=== PATIENT | male | born 1950 | race Caucasian/White ===

== ENCOUNTER 2018-07-26 18:50 | Inpatient (IN) | payer MEDICARE, BC ==
[~2018-07-26] VITALS: Ht 172.7 cm; Wt 143.0 kg
[2018-07-26] MEDS ORDERED: PANTOPRAZOLE IV 80 MG in SOD CHLORIDE 0.9% 100 ML IVPB STA (20:40)
[2018-07-26] MEDS ORDERED: PANTOPRAZOLE IV 80 MG in SOD CHLORIDE 0.9% 100 ML IV STA (20:40)
[2018-07-26] MEDS ORDERED: ACETAMINOPHEN 325 MG TAB PO PRN (22:30)
[2018-07-26] MEDS ORDERED: ONDANSETRON 4 MG INJ IV PRN (22:30)
--- NOTE | 2018-07-26 22:30 | ERD ---
ER Documentation Chief Complaint Chief Complaint SENT BY PMD FOR LOW H&H HPI This is a 68-year-old male sent here by his primary care physician for hemoglobin of 6.5. Patient denies any melena or vomiting blood. He says he does not feel very weak but has some generalized fatigue. No shortness of breath on exertion no history of ulcer or gastritis. He was sent by his physician to be admitted to the hospital for GI bleed work-up and blood transfusion. ROS All systems reviewed and are negative except as per history of present illness. Allergies Allergies: Coded Allergies: No Known Allergy (Verified , 11/07/12) PMhx/Soc History of Surgery: Yes (BLADDER , RIGTH HIP REPLACEMET) Anesthesia Reaction: No Hx Neurological Disorder: No Hx Respiratory Disorders: No Hx Cardiac Disorders: No Hx Psychiatric Problems: No Hx Miscellaneous Medical Probl: Yes (HTN) Hx Alcohol Use: Yes Hx Substance Use: No Hx Tobacco Use: No Smoking Status: Never smoker FmHx Family History: No coronary disease Physical Exam Vitals Vital Signs Date Temp Pulse Resp B/P (MAP) Pulse Ox O2 O2 Flow FiO2 Time Delivery Rate 07/26/18 97.0 89 18 172/77 97 18:53 (108) Physical Exam Const: Well-developed, well-nourished Head: Atraumatic, normocephalic Eyes: Normal Conjunctiva, PERRLA, EOMI, normal sclera, no nystagmus ENT: Normal External Ears, Nose and Mouth, moist mucus membranes. Neck: Full range of motion. No meningismus, no lymphadenopathy. Resp: Clear to auscultation bilaterally, no wheezing, rhonchi, rales Cardio: Regular rate and rhythm, no murmurs, S1 S2 present Abd: Soft, non tender x 4, non distended. Normal bowel sounds, no guarding or rebound, no pulsitile abdominal masses or bruits Skin: No petechiae or rashes, no ecchymosis , no maculopapular rash Back: No midline or flank tenderness Ext: No cyanosis, or edema, FROM x 4, normal inspection, neurov ascularly intact x 4 Neur: Awake and alert, STR 5/5 x 4, sensation intact x 4, no focal findings, cerebellum intact Psych: Normal Mood and Affect Result Diagram: 07/26/18203607/26/182036 Results 24 hrs Laboratory Tests Test 07/26/18 20:37 White Blood Count 13.8 10^3/ul Red Blood Count 3.72 10^6/ul Hemoglobin 6.3 g/dl Hematocrit 24.7 % Mean Corpuscular Volume 66.4 fl Mean Corpuscular Hemoglobin 16.9 pg Mean Corpuscular Hemoglobin Concent 25.5 g/dl Red Cell Distribution Width 21.0 % Platelet Count 274 10^3/UL Mean Platelet Volume 10.0 fl Immature Granulocytes % 0.400 % Neutrophils % % Segmented Neutrophils % (Manual) 67 % Lymphocytes % % Lymphocytes % (Manual) 24 % Monocytes % % Monocytes % (Manual) 5 % Eosinophils % % Eosinophils % (Manual) 2 % Basophils % % Basophils % (Manual) 2 % Nucleated Red Blood Cells % 0.2 /100WBC Immature Granulocytes # 0.050 10^3/ul Neutrophils # 10^3/ul Lymphocytes (Manual) 3.3 10^3/ul Lymphocytes # 10^3/ul Monocytes # 10^3/ul Monocytes # (Manual) 0.6 10^3/ul Eosinophils # 10^3/ul Basophils # 10^3/ul Basophils # (Manual) 0.2 10^3/ul Nucleated Red Blood Cells # 10^3/ul Pathologist Review (Hematology) YES Polychromasia 1+ Hypochromasia 3+ Poikilocytosis 1+ Anisocytosis 3+ Microcytosis 3+ Prothrombin Time 13.5 Sec Prothrombin Time Ratio 1.1 INR International Normalized Ratio 1.02 Activated Partial Thromboplast Time 25.2 Sec Sodium Level 141 mmol/L Potassium Level 4.6 mmol/L Chloride Level 106 mmol/L Carbon Dioxide Level 26 mmol/L Anion Gap 9 Blood Urea Nitrogen 19 mg/dl Creatinine 1.14 mg/dl Est Glomerular Filtrat Rate mL/min > 60 mL/min Glucose Level 126 mg/dl Calcium Level 9.2 mg/dl Total Bilirubin 0.4 mg/dl Direct Bilirubin 0.00 mg/dl Indirect Bilirubin 0.4 mg/dl Aspartate Amino Transf (AST/SGOT) 38 IU/L Alanine Aminotransferase (ALT/SGPT) 34 IU/L Alkaline Phosphatase 75 IU/L Total Protein 7.9 g/dl Albumin 4.2 g/dl Globulin 3.70 g/dl Albumin/Globulin Ratio 1.13 Current Medications Medications Dose Sig/Ric Start Time Status Last (Trade) Ordered Route PRN Stop Time Admin Dose Reason Admin Pantoprazole 100 ml @ ONCE STAT 07/26/18 DC 07/26/18 80 mg/Sodium 400 mls/hr IVPB 20:40 21:19 Chloride 07/26/18 20:54 Pantoprazole 100 ml @ ONCE STAT 07/26/18 07/26/18 80 mg/Sodium 10 mls/hr IV 20:40 21:19 Chloride 07/27/18 06:39 Procedures/MDM Patient's hemoglobin is 6.3. I spoke with the primary care physician will be admitted and get strict blood transfusion started here 2 units packed red blood cells. I started him on Protonix IV bolus and drip Critical Care Time: 30 minutes Treatments/Evaluations: Close monitoring and treatment of unstable vital signs, cardiorespiratory, and neurologic status, while maintaining tight balance of fluid, respiratory, and cardiac interventions. This time includes discussing the case with the patient and the patient's family. This time does not include all procedures stated elsewhere in this record. This time also includes reviewing old records, labs and radiological studies. This time includes examining and re- examining the patient. Additionally, this time also includes arranging care with admitting and consulting physicians. Departure Diagnosis: Primary Impression: Anemia Anemia type: unspecified type Qualified Codes: D64.9 - Anemia, unspecified Condition: Stable IVELISSE LEWIS DO July 26, 2018 22:30
[2018-07-27] VITALS (12 sets, daily range): BP systolic 122–180; BP diastolic 57–81; PULSE 74–123; RESP 16–21
[2018-07-27] MEDS ORDERED: TAMS-14 PO (00:10)
[2018-07-27] MEDS ORDERED: DULA0.75 SQ (00:10)
[2018-07-27] MEDS ORDERED: SITA1TAB PO (00:10)
[2018-07-27] MEDS ORDERED: ALLO300T2 PO (00:10)
[2018-07-27] MEDS ORDERED: IBUP-1542 PO (00:10)
[2018-07-27] MEDS ORDERED: IRBE1TAB33 PO (00:10)
--- NOTE | 2018-07-27 00:46 | PN ---
Date/Time of Note Date/Time of Note DATE: 07/27/18 TIME: 00:36 Assessment/Plan VTE Prophylaxis SCD applied (from Nsg): Yes SCD contraindicated: other (on.) Pharmacological prophylaxis: other (no.) Pharm contraindication: bleeding Lines/Catheters IV Catheter Type (from Nrsg): [place] [employer] line still needed: No Reason Cath still needed: urinary retention Assessment/Plan Assessment/Plan 1.Anemia-with possible recent loss 2.Hx of GI bleeding with multiple units of prbc tx 3.HTN with chf 4.Morbid obesity with snoring 5.Dyslipidemia 6.Nephrolithiasis with the Hx of lithotripsy and bladder stone removal 7.S/P abdominal hernia repair 8.S/P left hip replacement 9.Hemorrhoidal disease 10.Non-comlience to medications and diet 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 12.Hx of moderate etoh use 13.LBP 14.Hearing impairment 15.Hx of multiple body part traumas 16.COPD Result Diagram: 07/26/18203607/26/182036 Results 24hrs Laboratory Tests Test 07/26/18 20:37 White Blood Count 13.8 H Red Blood Count 3.72 L Hemoglobin 6.3 *L Hematocrit 24.7 L Mean Corpuscular Volume 66.4 L Mean Corpuscular Hemoglobin 16.9 L Mean Corpuscular Hemoglobin Concent 25.5 L Red Cell Distribution Width 21.0 H Platelet Count 274 Mean Platelet Volume 10.0 Immature Granulocytes % 0.400 Neutrophils % Segmented Neutrophils % (Manual) 67 Lymphocytes % Lymphocytes % (Manual) 24 Monocytes % Monocytes % (Manual) 5 Eosinophils % Eosinophils % (Manual) 2 Basophils % Basophils % (Manual) 2 Nucleated Red Blood Cells % 0.2 H Immature Granulocytes # 0.050 H Neutrophils # Lymphocytes (Manual) 3.3 H Lymphocytes # Monocytes # Monocytes # (Manual) 0.6 Eosinophils # Basophils # Basophils # (Manual) 0.2 H Nucleated Red Blood Cells # Pathologist Review (Hematology) YES Polychromasia 1+ Hypochromasia 3+ Poikilocytosis 1+ Anisocytosis 3+ Microcytosis 3+ Prothrombin Time 13.5 Prothrombin Time Ratio 1.1 INR International Normalized Ratio 1.02 Activated Partial Thromboplast Time 25.2 Sodium Level 141 Potassium Level 4.6 Chloride Level 106 Carbon Dioxide Level 26 Anion Gap 9 Blood Urea Nitrogen 19 Creatinine 1.14 Est Glomerular Filtrat Rate mL/min > 60 Glucose Level 126 Calcium Level 9.2 Total Bilirubin 0.4 Direct Bilirubin 0.00 Indirect Bilirubin 0.4 Aspartate Amino Transf (AST/SGOT) 38 Alanine Aminotransferase (ALT/SGPT) 34 Alkaline Phosphatase 75 Total Protein 7.9 Albumin 4.2 Globulin 3.70 H Albumin/Globulin Ratio 1.13 Subjective 24 Hr Interval Summary Free Text/Dictation He was sent here by me, in am, for hemoglobin of 6.5. bleeding through hemorrhoid, rectum and via urination.He had previose hx of blood tx. Patient denies any melena or vomiting blood. He says he does not feel very weak but has some generalized fatigue. No shortness of breath on exertion no history of ulcer or gastritis. Constitutional: diaphoresis; No no complaints, No improved, No chills, No disoriented, No febrile, No poor po, No requiring IVF, No requiring O2, No other Eyes: No no complaints, No pain, No discharge, No redness, No visual change, No other ENT: congestion; No no complaints, No bleeding, No pain, No discharge, No dysphagia, No sore throat, No other Respiratory: cough, shortness of breath; No no complaints, No pain, No pleuritic pain, No sputum, No wheezing, No other Cardiovascular: chest pain, edema; No no complaints, No lightheadedness, No orthopenea, No palpitations, No paroxysmal nocturnal dyspnea, No other Gastrointestinal: constipation, decreased appetite, flatus, nausea, passing stool; No no complaints, No pain, No blood, No diarrhea, No vomiting, No other Genitourinary: dysuria, flank pain; No no complaints, No bleeding, No discharge, No hematuria, No other Musculoskeletal: back pain, bone/joint pain, neck pain; No no complaints, No restricted range of motion, No swelling, No other Skin: No no complaints, No bruising, No erythema, No laceration, No pruritis, No rash, No skin lesions, No other Neurologic: dizziness, headache; No no complaints, No confusion, No focal-weakness, No syncope, No seizure, No other Endocrine: No no complaints, No polyuria, No polydypsia, No dry skin, No temp intolerance, No other Lymphatic: No no complaints, No adenopathy, No tender nodes, No lymphadema, No other Psychological: anxiety; No no complaints, No nl mood/affect, No confusion, No depression, No suicidal, No other Immunologic: No no complaints, No immunodeficiency, No pruritis, No rhinitis, No urticaria, No other Exam/Review of Systems Exam Vitals Vital Signs Date Temp Pulse Resp B/P (MAP) Pulse Ox O2 O2 Flow FiO2 Time Delivery Rate 07/26/18 98.1 91 22 147/74 96 Room Air 23:30 (98) Constitutional: alert, oriented, well developed, distress, obese, other (On and off expressed the thoughts that he is okay that he can go home. Explained the patient the level of H&H and the course can be only bleeding through the GI tract mainly although he had a history of urinary tract problem including bleeding and history of nephrolithiasis and passing stones he agreed to stage at least a minimal work-up will be done.); No non-verbal, No frail Psych: anxiety, depression; No no complaints, No nl mood/affect, No confusion, No suicidal, No other Head: normocephalic, atraumatic; No lacerations, No hematomas, No other Eyes: EOMI, nl lids, nl sclera, PERRL, icteric (Pale conjunctiva.); No nl conjunctiva, No fundi, disc, No other ENMT: nl external ears & nose, nl nasal mucosa & septum; No nl lips & teeth, No mucosa pink and moist, No intubated, No tympanic membranes, No other Neck: jvd, bruits, thyromegaly, nuchal rigidity; No supple, No non-tender, No masses, No other Respiratory: congested cough, crackles/rales, diminished breath sounds, respirations, wheezing; No clear to auscultation, No normal air movement, No intercostal retraction, No labored breathing, No tactile fremitus, No other Cardiovascular: regular rate and rhythm, bruits, murmurs/extra sounds, systolic murmur; No nl pulses, No diastolic murmur, No edema, No gallop, No irregular rhythm, No jugular venous distention (JVD), No rub, No S3, No S4, No other Gastrointestinal: soft, distended, rebound or guarding; No nl liver, spleen, No non-tender, No ascites, No bowel sounds, No firm, No hepatomegaly, No mass, No splenomegaly, No surgical scars, No tender, No other Genitourinary - Male: nl penis, nl scrotum; No CVA tenderness, No discharge, No other Musculoskeletal: joint tenderness, muscle tone, muscle weakness; No nl extremities to inspection, No nl gait and stance, No range of motion, No spine non-tender, No swelling, No other Extremities: edema; No normal pulses, No calf tenderness, No cyanosis, No clubbing, No pitting pedal edema, No palpable cord, No tenderness, No other Neurological: MANAGER CHEMICAL II-XII intact, numbness; No nl mental status, No nl speech, No nl strength, No confused, No DTR's symmetric, No focal weakness, No lethargic, No reflexes, No unresponsive, No other Skin: nl turgor; No rash or lesions, No diaphoresis, No ecchymosis, No laceration, No puncture, No other Lymph: No nl lymph nodes, No enlarged, No nontender, No other Results Results 24hrs Laboratory Tests Test 07/26/18 20:37 White Blood Count 13.8 H Red Blood Count 3.72 L Hemoglobin 6.3 *L Hematocrit 24.7 L Mean Corpuscular Volume 66.4 L Mean Corpuscular Hemoglobin 16.9 L Mean Corpuscular Hemoglobin Concent 25.5 L Red Cell Distribution Width 21.0 H Platelet Count 274 Mean Platelet Volume 10.0 Immature Granulocytes % 0.400 Neutrophils % Segmented Neutrophils % (Manual) 67 Lymphocytes % Lymphocytes % (Manual) 24 Monocytes % Monocytes % (Manual) 5 Eosinophils % Eosinophils % (Manual) 2 Basophils % Basophils % (Manual) 2 Nucleated Red Blood Cells % 0.2 H Immature Granulocytes # 0.050 H Neutrophils # Lymphocytes (Manual) 3.3 H Lymphocytes # Monocytes # Monocytes # (Manual) 0.6 Eosinophils # Basophils # Basophils # (Manual) 0.2 H Nucleated Red Blood Cells # Pathologist Review (Hematology) YES Polychromasia 1+ Hypochromasia 3+ Poikilocytosis 1+ Anisocytosis 3+ Microcytosis 3+ Prothrombin Time 13.5 Prothrombin Time Ratio 1.1 INR International Normalized Ratio 1.02 Activated Partial Thromboplast Time 25.2 Sodium Level 141 Potassium Level 4.6 Chloride Level 106 Carbon Dioxide Level 26 Anion Gap 9 Blood Urea Nitrogen 19 Creatinine 1.14 Est Glomerular Filtrat Rate mL/min > 60 Glucose Level 126 Calcium Level 9.2 Total Bilirubin 0.4 Direct Bilirubin 0.00 Indirect Bilirubin 0.4 Aspartate Amino Transf (AST/SGOT) 38 Alanine Aminotransferase (ALT/SGPT) 34 Alkaline Phosphatase 75 Total Protein 7.9 Albumin 4.2 Globulin 3.70 H Albumin/Globulin Ratio 1.13 Medications Medication Current Medications Pantoprazole 80 mg/Sodium Chloride 100 ml @ 10 mls/hr ONCE STAT IV Last administered on 07/26/18at 21:19; Admin Dose 10 MLS/HR; Start 07/26/18 at 20:40; Stop 07/27/18 at 06:39 Ondansetron HCl (Zofran Inj) 4 mg ER BRIDGE PRN IV NAUSEA/VOMITING; Start 07/26/18 at 22:30; Stop 07/27/18 at 22:29 Acetaminophen (Tylenol Tab) 650 mg ER BRIDGE PRN PO .MILD PAIN 1-3 OR TEMP; Start 07/26/18 at 22:30; Stop 07/27/18 at 22:29 Allopurinol (Zyloprim) 300 mg DAILY PO ; Start 07/27/18 at 09:00; Status UNV Tamsulosin HCl (Flomax) 0.4 mg QHS PO ; Start 07/27/18 at 21:00; Status UNV Miscellaneous Information 1 tab DAILY PO ; Start 07/27/18 at 09:00; Status UNV Miscellaneous Information 1 tab QAM PO ; Start 07/27/18 at 09:00; Status UNV Pantoprazole (Protonix Tab) 40 mg DAILY@06 PO ; Start 07/27/18 at 06:00; Status UNV Albuterol/ Ipratropium (Duoneb) 3 ml Q6HWA RESP THERAPY HHN ; Start 07/27/18 at 08:00; Status UNV JIGNA LUNA MD July 27, 2018 00:46
[2018-07-27] MEDS ORDERED: CLONIDINE 0.1 MG/24 HR PATCH TRANSDERM SCH (01:00)
[2018-07-27] MEDS ORDERED: hydrALAzine 20 MG INJ IV PRN (01:30)
[2018-07-27] MEDS: PANTOPRAZOLE (EC) 40 MG TAB PO SCH (06:23)
[2018-07-27] MEDS: ALBUTEROL/IPRATROPIUM (NEB) 3 ML AMP HHN SCH ×3 (08:06→19:34)
[2018-07-27] MEDS: ALLOPURINOL 300 MG TAB PO SCH (08:10)
[2018-07-27] MEDS: LOSARTAN 50 MG TAB PO SCH (08:10)
[2018-07-27] MEDS ORDERED: metFORMIN 500 MG TAB PO SCH (08:30)
[2018-07-27] MEDS ORDERED: NON-FORMULARY/PATIENT OWN MED (Sitagliptin Phos/Metformin HCl (Janumet 50-500 mg Tablet) 1 PO SCH (09:00)
[2018-07-27] MEDS: LINAGLIPTIN 5 MG TABLET PO SCH (10:21)
[2018-07-27] MEDS: metFORMIN 500 MG TAB PO SCH (10:21)
[2018-07-27] MEDS ORDERED: TAMSULOSIN (SR) 0.4 MG CAP PO SCH (21:00)
--- NOTE | 2018-07-27 23:22 | PDOCDIS ---
Discharge Instructions DIAGNOSIS Discharge Diagnosis 1.Anemia-with possible recent loss; s/p 4 units of prbc tx. 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 SCHOOL/WORK RELEASE May return to School/Work with: No Restrictions JIGNA LUNA MD July 27, 2018 23:22
[2018-07-28] VITALS: BP 145/67; PULSE 83; RESP 18
[2018-07-28 00:09] VITALS: PULSE 81
[2018-07-28 03:55] VITALS: BP 148/70; PULSE 84; RESP 18
[2018-07-28 04:00] VITALS: PULSE 97
[2018-07-28] MEDS: PANTOPRAZOLE (EC) 40 MG TAB PO SCH (06:10)
[2018-07-28 07:15] VITALS: BP 136/74; PULSE 85; RESP 20
[2018-07-28] MEDS: metFORMIN 500 MG TAB PO SCH (08:00)
[2018-07-28 08:11] VITALS: PULSE 76
--- NOTE | 2018-07-28 08:43 | PDOCDIS ---
Discharge Instructions DIAGNOSIS Discharge Diagnosis 1.Anemia-with possible recent loss; s/p 4 units of prbc tx. 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 In [address] Self. SCHOOL/WORK RELEASE May return to School/Work with: No Restrictions JIGNA LUNA MD July 28, 2018 08:42
[2018-07-28] MEDS: ALLOPURINOL 300 MG TAB PO SCH (09:00)
[2018-07-28] MEDS: LINAGLIPTIN 5 MG TABLET PO SCH (09:00)
[2018-07-28] MEDS: LOSARTAN 50 MG TAB PO SCH (09:00)
[2018-07-28] MEDS ORDERED: HYDROCHLOROTHIAZIDE 12.5 MG CAP PO SCH (09:00)
--- NOTE | 2018-07-28 10:09 | CONS ---
DATE OF ADMISSION: 07/26/2018 DATE OF CONSULTATION: 07/27/2018 GENERAL: I saw the patient yesterday. I had encounter with him yesterday. HISTORY OF PRESENT ILLNESS: The patient is a 68-year-old male who was sent to the Emergency Room by primary care physician for low hemoglobin. His hemoglobin was 6.5. The patient denied any abdominal pain, no nausea, no vomiting. No gross GI bleeding, no melena, no hematochezia. He was just feelin g generalized weakness. 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 No history of w eight loss. REVIEW OF SYSTEMS: Otherwise negative. ALLERGIES: NONE. PAST MEDICAL HISTORY: History of bladder surgery and a right hip replacement, history of hypertensio n. PAST SURGICAL HISTORY: He had surgery on his abdomen. Laparotomy was done. FAMILY HISTORY: Mother had colon cancer. PHYSICAL EXAMINATION VITAL SIGNS: Stable. HEENT: Unremarkable. NECK: Supple, no thyromegaly, no lymphadenopathy. CARDIOVASCULAR: No murmur, gallop or click. LUNGS: Clear. ABDOMEN: Morbidly obese. He has a midline surgical scar, nontender. No mass felt per abdomen. EXTREMITIES: No edema. CENTRAL NERVOUS SYSTEM: Grossly within normal limits. LABORATORY DATA: Looking at his labs, patient's INR was normal. BNP was grossly within normal limit . He has hematocrit of 24.7, got a blood transfusion and now it has bounced back to 27.6. It is [place] rocytic hypochromic picture. PT, PTT was within normal limits. Chest x-ray was normal. IMPRESSION: 1. Severe microcytic hypochromic anemia. 2. Strong family history of colon cancer. 3. Hypertension. 4. Morbid obesity. 5. History of kidney stone. 6. Dyslipidemia. 7. Status post abdominal hernia surgery. 8. Status post left hip replacement. 9. Gout. 10. History of moderate ethanol use. 11. Hearing impairment. 12. Chronic obstructive pulmonary disease. PLAN: At this point is to monitor H and H. Continue PPI and will proceed with EGD and colonoscopy i f patient is agreeable. Dictated By: ODILON PLUNKETT/NTS Conf#: [id number] DID#: [id number] CC: JIGNA LUNA MD;*EndCC*
--- NOTE | 2018-07-28 10:16 | CONS ---
DATE OF ADMISSION: 07/26/2018 DATE OF CONSULTATION: 07/28/2018 HISTORY OF PRESENT ILLNESS: This is a 68-year-old male who presented with severe microcytic hypochro [place] anemia. The patient was totally asymptomatic. He got blood transfusion and now hematocrit is 30 . OBJECTIVE: VITAL SIGNS: Stable. ABDOMEN: Morbidly obese. CARDIOVASCULAR: Benign. LUNGS: Clear. EXTREMITIES: No edema. CENTRAL NERVOUS SYSTEM: Grossly within normal limits. GASTROINTESTINAL: Stool for occult blood pending. Rest of the anemia workup pending. IMPRESSION: 1. Severe microcytic hypochromic anemia. 2. Strong family history of colon cancer. Mother had it. 3. Hypertension. 4. Morbid obesity. 5. Chronic obstructive pulmonary disease. 6. Status post laparotomy and hernia repair. PLAN: At this point, the patient definitely needs endoscopy. He has declined and he wants to come a s an outpatient. Dr. Luna and myself talked to him for about 10 to 15 minutes. It was difficul t to convince because of some family issue, so he will be discharged today and we will follow him as an outpatient and do procedure as an outpatient. Dictated By: ODILON PLUNKETT/NTS Conf#: [id number] DID#: [id number] CC: ODILON ELDER MD; JIGNA LUNA MD;*EndCC*
--- NOTE | 2018-07-28 14:32 | RADRPT ---
Vent Rate: 92 bpm RR Interval: 0 msec FL Interval: 162 msec QRS Duration: 98 msec QT Interval: 390 msec QTC Interval: 482 msec P-R-T [place]: 27 - 58 - 48 degrees Normal sinus rhythm Nonspecific ST abnormality Abnormal ECG Electronically Signed By: [facility]
== END 2018-07-28 09:14 | disposition home or self-care (01) | DRG 812 ==
LOC: E/R 18:50 → 6WM 22:31
PROVIDERS: ADMIT Family Medicine; ATTEND Family Medicine
PROC: 30233N1 Transfusion of Nonautologous Red Blood Cells into Peripheral Vein, Percutaneous Approach (ICD-10-PCS; principal; 2018-07-26)
DX: D50.9 Iron deficiency anemia, unspecified (principal); Z68.42 Body mass index [BMI] 45.0-49.9, adult; I11.0 Hypertensive heart disease with heart failure; I50.9 Heart failure, unspecified; E66.01 Morbid (severe) obesity due to excess calories; J44.9 Chronic obstructive pulmonary disease, unspecified
CPT/HCPCS: 36415; 36430; 71045; 80048; 80053; 82962; 85025; 85610; 85730; 86850; 86900; 86901; 86920; 93005; 94640; 94664; 96374; 96376; C9113; J0360; P9016